=== PATIENT | female | born 1950 | race Caucasian/White ===

== ENCOUNTER → 2016-10-04 10:15 | Outpatient (CLI) | payer MEDICARE, OTHER ==
[~2016-10-04] VITALS: Ht 162.6 cm; Wt 63.2 kg
[~2016-10-04 10:15] MED LIST: ADVAIR 100/501 DISK INH; CLARITIN-D1 TAB.SR . PO; PROLIA INJ 660 MG/M1 IJ; SINGULAIR10 MG PO; VENTOLIN HFA18 GM; VITAMIN D2000 UNIT PO; VITAMIN D50000 UNIT PO
[2016-10-04 11:09] VITALS: BP 111/75; Ht 162.6 cm; Wt 63.2 kg
== END | disposition home or self-care (01) ==
LOC: D.OPS 10:15
DX: M81.0 Age-related osteoporosis without current pathological fracture (principal)

== ENCOUNTER 2017-04-10 12:56 | Outpatient (CLI) | payer MEDICARE, OTHER ==
[~2017-04-10] VITALS: Ht 162.6 cm; Wt 63.2 kg
[2017-04-10 14:04] VITALS: BP 133/74; Ht 162.6 cm; Wt 63.2 kg
== END 2017-04-10 14:05 | disposition home or self-care (01) ==
LOC: D.OPS 12:56
DX: M81.0 Age-related osteoporosis without current pathological fracture (principal)

== ENCOUNTER 2017-10-03 09:48 | Outpatient (CLI) | payer MEDICARE, OTHER ==
[~2017-10-03] VITALS: Ht 162.6 cm; Wt 63.6 kg
[2017-10-03 10:18] VITALS: Ht 162.6 cm; Wt 63.6 kg
== END 2017-10-03 10:43 | disposition home or self-care (01) ==
LOC: D.OPS 09:48
DX: M81.0 Age-related osteoporosis without current pathological fracture (principal)

== ENCOUNTER → 2019-01-22 08:24 | Outpatient (CLI) | payer MEDICARE, BC ==
[2017-10-03 10:18] VITALS: BMI 24.0
--- NOTE | ~2019-01-22 | HEMODYNAMI ---
PATIENT:JUSTICE BARTON MEDICAL RECORD: [id number] : 46 [id number] ADMISSION DATE: 01/22/19 Generatedon:01/22/201910:18 Patient name: JUSTICE BARTON Patient #: [id number] SSN: : 1950 Date of study: 01/22/2019 Page: Of Hemodynamic Procedure Report Patient Data Patient Demographics Procedure consent was obtained First Name: JUSTICE Gender: Female Last Name: ORALIA : 1950 [facility] Initial: VJ Age: 68 year(s) Patient #: [id number] Race: Unknown Additional ID: [id number] Contact details [address]: [address] [place] [address] State: [place] City: [place] Zip code: [address] Past Medical History Allergies: No known allergies Admission Admission Data Admission Date: 01/22/2019 Admission Time: 8:24 Procedure Procedure Types Cath Procedure Peripheral Cath Diagnostic Procedure Miscellaneous Aspiration/Injection (Joint) Procedure Description Procedure Date Procedure Date: 01/22/2019 Procedure Start Time: 10:03 Procedure Staff Name Function Coy Maciel RT Scrub Hemal Roldan MD Performing Physician Damari Meyer RN Nurse GM VENEGAS RT Monitor Procedure Data Cath Procedure Fluoroscopy Diagnostic fluoroscopy Total fluoroscopy Time: 0.2 time: 0.2 min min Diagnostic fluoroscopy Total fluoroscopy dose: 2 dose: 2 mGy mGy Hemodynamics Rest Pre Cath Intra NCS Post Cath Procedure Log Time Note 9:25:28 GM VENEGAS RT (R) sent for patient. Start room use. 9:25:42 Patient received from Outpatients to IR Alert and oriented. Tansferred to table in Supine position. 9:25:49 Time tracking: Regular hours (M-F 7:00 - 5:00) 9:28:02 Correct patient and procedure confirmed by team. 9:28:06 Signed procedure consent form obtained from patient. 9:28:50 Patient allergic to No known allergies 9:30:39 Is patient on blood thinner?No 9:42:08 Left Hip was prepped with betadine and draped in sterile fashion. 9:42:17 - 10:02:00 Full Disclosure recording started 10:02:39 Physician arrived 10:02:40 --------ALL STOP TIME OUT------ 10:02:41 Final Timeout: patient, procedure, and site verified with staff and physician. All members of the team are in agreement. 10:02:47 Left groin site verified by team. 10:02:53 Sedation plan: Local Anesthetic Medication:Lidocaine 10:03:10 Local anesthetic to Left Hip with Lidocaine 1% by Hemal Roldan MD.INITIAL ACCESS ONLY 10:03:24 SAFE-T PLUS MYELOGRAM TRAY opened to sterile field. 10:09:33 Procedure ended.(Physican Out) 10:09:58 Fluoroscopy time 00.20 minutes. 10:10:12 Fluoroscopy dose: 2 mGy 10:10:12 Flurop Dose total: 2 10:11:31 bandaide applied,site stable pt. sent home 10:11:55 Full Disclosure recording stopped Device Usage Item Name Manufacture Quantity Catalog Hospital Part Current Minimal Lot# / Number Charge Number Stock Stock Serial# Code SAFE-T [employer] 1 [id number] PLUS MYELOGRAM TRAY Signature Audit Stephenson Stage Time Signature Unsigned Intra-Procedure 01/22/2019 Coy Maciel RT 10:11:46 AM Janell RT (R) (CV) 01/22/2019 (R) (CV) 10:18:01 AM Intra-Procedure 01/22/2019 Coy 10:18:52 AM Janell RT (R) (CV) Signatures Monitor : GM VENEGAS RT Signature : Date : Time : [facility] [address] [place] [address]
== END | disposition home or self-care (01) ==
LOC: D.RAD 08:24
PROVIDERS: ATTEND Orthopaedic Surgery
DX: M54.16 Radiculopathy, lumbar region (principal)

== ENCOUNTER → 2019-02-06 12:40 | Outpatient (CLI) | payer MEDICARE, BC ==
[2017-10-03 10:18] VITALS: BMI 24.0
--- NOTE | ~2019-02-06 | HEMODYNAMI ---
PATIENT:JUSTICE BARTON MEDICAL RECORD: [id number] : 46 LOCATION:[facility] ADMISSION DATE: 02/06/19 Generatedon:02/06/201913:56 Patient name: JUSTICE BARTON Patient #: [id number] SSN: : 1950 Date of study: 02/06/2019 Page: Of Hemodynamic Procedure Report Patient Data Patient Demographics Procedure consent was obtained First Name: JUSTICE Gender: Female Last Name: ORLAIA : 1950 [facility] Initial: VJ Age: 68 year(s) Patient #: [id number] Race: Unknown Additional ID: [id number] Contact details [address]: [address] [place] [address] State: [place] City: [place] Zip code: [address] Past Medical History Allergies: No known allergies Admission Admission Data Admission Date: 02/06/2019 Admission Time: 12:40 Procedure Procedure Types Cath Procedure Peripheral Cath Diagnostic Procedure Miscellaneous Epidural Steroid Injection Procedure Description Procedure Date Procedure Date: 02/06/2019 Procedure Start Time: 13:39 Procedure Staff Name Function Miguel Carrion MD Performing Physician GM VENEGAS RT Monitor Genny Carnes RN Nurse Coy Maciel RT Scrub Procedure Data Cath Procedure Fluoroscopy Diagnostic fluoroscopy Total fluoroscopy Time: 0.5 time: 0.5 min min Diagnostic fluoroscopy Total fluoroscopy dose: 9 dose: 9 mGy mGy Hemodynamics Rest Pre Cath Intra NCS Post Cath Procedure Log Time Note 13:10:27 Coy Maciel RT (R) (CV) sent for patient. Start room use. 13:27:48 Time tracking: Regular hours (M-F 7:00 - 5:00) 13:27:57 Patient received from Outpatients to IR Alert and oriented. Tansferred to table in Prone position. 13:28:00 Correct patient and procedure confirmed by team. 13:28:03 Signed procedure consent form obtained from patient. 13:28:05 - 13:29:05 Patient allergic to No known allergies 13:29:31 Lumbar area was prepped with betadine and draped in sterile fashion 13:32:26 Physician arrived 13:33:58 --------ALL STOP TIME OUT------ 13:34:07 Final Timeout: patient, procedure, and site verified with staff and physician. All members of the team are in agreement. 13:35:18 Lumbar site verified by team. 13:39:26 KIT EPIDURAL CATHETERIZATION opened to sterile field. 13:39:39 Procedure started. 13:39:39 Full Disclosure recording started 13:39:51 Local anesthetic to Lumbar area with Lidocaine 1% by Miguel Carrion MD.INITIAL ACCESS ONLY 13:52:12 Procedure ended.(Physican Out) 13:52:29 Fluoroscopy time 00.50 minutes. 13:52:35 Fluoroscopy dose: 9 mGy 13:52:35 Flurop Dose total: 9 13:53:04 Post Lumbar area:stable band aide applied and patient sent home Device Usage Item Name Manufacture Quantity Catalog [facility] Part [facility] Lot# / Number Charge Number Stock Stock Serial# Code KIT EPIDURAL Teleflex 1 [id number] CATHETERIZATION Signature Audit Reading Stage Time Signature Unsigned Intra-Procedure 02/06/2019 MG VENEGAS RT 1:56:26 PM (R) Signatures Monitor : GM VENEGAS RT Signature : Date : Time : [facility] [address] [place] [address]
== END | disposition home or self-care (01) ==
LOC: D.RAD 01-28 11:00 → D.SP 01-28 11:00
PROVIDERS: ATTEND Orthopaedic Surgery
DX: M54.5 Low back pain (principal); M54.16 Radiculopathy, lumbar region; Z01.812 Encounter for preprocedural laboratory examination

== ENCOUNTER 2019-04-16 10:43 | Outpatient (CLI) | payer MEDICARE, BC ==
[~2019-04-16] VITALS: Ht 157.5 cm; Wt 63.6 kg
[2019-04-16 11:16] VITALS: Ht 157.5 cm; Wt 63.6 kg
--- NOTE | 2019-04-16 11:27 | NUR ---
PT ADMITTED FOR PROLIA INJECTION. INJECTION ADMINISTERED PER RUE PER ORDERS.
--- NOTE | 2019-04-16 11:30 | NUR ---
WRITTEN AND VERBAL DC INST. GIVEN TO PT. VERBALIZED UNDERSTANDING.
--- NOTE | 2019-04-16 11:35 | NUR ---
DC'D HOME PER PRIVATE VEHICLE. STABLE AT TIME OF DC.
== END 2019-04-16 11:35 | disposition home or self-care (01) ==
LOC: D.OPS 10:43
PROVIDERS: ATTEND Family Medicine
DX: M81.0 Age-related osteoporosis without current pathological fracture (principal)